=== PATIENT | female | born 1980 | race Native Hawaiian/Other Pacific Islander ===

== ENCOUNTER 2019-04-07 13:04 | Emergency (ER) | payer OTHER ==
[2019-04-07 13:23] VITALS: O2SAT 98
[2019-04-07 13:24] VITALS: PULSE 69; RESP 18; TEMP 98
[2019-04-07] MEDS ORDERED: Sodium Chloride 0.9% 1,000 ML IV STA (14:34)
[2019-04-07 15:25] LABS: BASO # 0.1 K/uL (0.0-0.2); BASO % 0.9 % (0.0-2.0); EOS # 0.3 K/uL (0.0-0.7); EOS % 5.2 % (0.0-4.0); HEMOGLOBIN 12.3 g/dL (12.0-16.0); LYMPH # 2.1 K/uL (1.0-4.3); LYMPH % 30.7 % (20.0-40.0); MEAN CELL VOLUME 79.9 fl (81.0-99.0); MEAN CORPUSCULAR HEMOGLOBIN 26.2 pg (27.0-31.0); MEAN CORPUSCULAR HGB CONC 32.8 g/dL (33.0-37.0); MEAN PLATELET VOLUME 8.4 fl (7.2-11.7); MONO # 0.4 K/uL (0.0-0.8); MONO % 5.8 % (0.0-10.0); NEUT # 3.8 K/uL (1.8-7.0); NEUT % 57.4 % (50.0-75.0); NRBC % 0.1 % (0.0-0.0); RBC 4.7 Mil/uL (3.80-5.20); RED CELL DISTRIBUTION WIDTH 14.2 % (11.5-14.5); WHITE BLOOD COUNT 6.7 K/uL (4.8-10.8)
[2019-04-07 15:42] LABS: SQUAMOUS EPITHIAL < 1 /hpf (0-5); URINE BACTERIA OCC (<OCC); URINE BILIRUBIN NEGATIVE (NEGATIVE); URINE BLOOD NEGATIVE (NEGATIVE); URINE CLARITY SLIGHTY-CLOUDY (Clear); URINE COLOR YELLOW (YELLOW); URINE GLUCOSE (UA) NEG (NEGATIVE); URINE LEUKOCYTE ESTERASE NEG Leu/uL (Negative); URINE PROTEIN 30 mg/dL (NEGATIVE); URINE UROBILINOGEN 0.2-1.0 mg/dL (0.2-1.0)
[2019-04-07 15:48] LABS: ALB/GLOB RATIO 1.4 (1.0-2.1); ALBUMIN 4.2 g/dL (3.5-5.0); ALT/SGPT 20 U/L (9-52); AST/SGOT 24 U/L (14-36); BLOOD UREA NITROGEN 12 mg/dl (7-17); CALCIUM 8.9 mg/dL (8.4-10.2); GFR NON-AFRICAN AMERICAN > 60
--- NOTE | 2019-04-07 16:53 | CT ---
Date of service: 04/07/2019 PROCEDURE: CT Abdomen and Pelvis without intravenous contrast HISTORY: flank pain, r/o kidney stone COMPARISON: None. TECHNIQUE: Helical CT of the abdomen and pelvis was performed without oral or intravenous contrast as per referring physician request. Coronal and sagittal reformats were generated. Radiation dose: Total exam DLP = 566.02 mGy-cm. This CT exam was performed using one or more of the following dose reduction techniques: Automated exposure control, adjustment of the mA and/or kV according to patient size, and/or use of iterative reconstruction technique. FINDINGS: LOWER THORAX: Unremarkable. LIVER: Unremarkable. No gross lesion or ductal dilatation. GALLBLADDER AND BILE DUCTS: Contracted. No radiodense cholelithiasis in the lumen. PANCREAS: Unremarkable. No gross lesion or ductal dilatation. SPLEEN: Unremarkable. ADRENALS: Unremarkable. No mass. KIDNEYS AND URETERS: Moderate left hydroureteronephrosis identified which appears to be due to a 4.8 mm calculus in the region of the distal left ureter proximal to the left ureterovesical junction region. Left ureter is difficult to separate at its distal segment from local adnexa and bowel. A midpole calculus is intrarenal, nonobstructive measuring 3.6 mm with a small calculi identified in the lower pole. No definite left perinephric reaction appreciable. 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 Clinically correlate with the former favored given lack of postoperative changes at the expected right renal fossa region. VASCULATURE: Unremarkable. No aortic aneurysm. No aortic atherosclerotic calcification or mural plaque present. BOWEL: Mildly prominent amount retained fecal material scattered throughout the right greater than left hemicolon. No bowel obstruction. No gross mural thickening. APPENDIX: Unremarkable. Normal appendix. PERITONEUM: Unremarkable. No free fluid. No free air. LYMPH NODES: Unremarkable. No enlarged lymph nodes. BLADDER: Unremarkable. REPRODUCTIVE: Unremarkable. BONES: No acute fracture. OTHER FINDINGS: None. IMPRESSION: 1. 4.8 mm calculus obstructs the distal left ureter proximal left ureter vessel junction causing moderate left hydroureteronephrosis. No perinephric reaction left kidney. Two intrarenal calculi identified at the mid and lower pole left kidney as per above (nonobstructive). 2. 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 Clinically correlate (former favored). 3. Mildly prominent amount retained fecal material scattered throughout the right greater than left hemicolon.
--- NOTE | 2019-04-07 17:36 | ED PDOC ---
HPI: Abdomen Time Seen by Provider: 04/07/19 14:13 Chief Complaint (Nursing): Abdominal Pain Chief Complaint (Provider): Left flank pain History Per: Patient History/Exam Limitations: no limitations Onset/Duration Of Symptoms: Days (2) Outside of [place] travel?: No Current Symptoms Are (Timing): Still Present Location Of Pain/Discomfort: Other Quality Of Discomfort: Sharp Associated Symptoms: Nausea, Vomiting, Other (LEft flank pain). denies: Fever, Chills, Loss Of Appetite, Constipation, Urinary Symptoms Exacerbating Factors: None Alleviating Factors: None Additional Complaint(s): 39 yo female with history of hypothyroid disorder presents for evaluation of left flank pain. PT was in [place] when the pain began. PT states that she was told it could be a kidney stone. [place] came [place]. PT has been taking pain medication with motrin and states that it has controlled her pain well. PT reports nausea and vomiting x 1 when the pain was bad. Pt denies fever/chills. Pt denies change in urination. Abnormal Vaginal Bleeding: No Past Medical History Reviewed: Historical Data, Nursing Documentation, Vital Signs Vital Signs: Last Vital Signs Temp 98 F 04/07/19 13:23 Pulse 69 04/07/19 13:23 Resp 18 04/07/19 13:23 BP 120/82 04/07/19 13:23 Pulse Ox 98 04/07/19 13:23 Primary Care Provider: FAMILY PROVIDER,NO - Medical History PMH: Hypothyroidism - Surgical History Surgical History: No Surg Hx - Family History Family History: States: No Known Family Hx - Living Arrangements Living Arrangements: With Family - Social History Current smoker - smoking cessation education provided: No - Home Medications Home Medications: Ambulatory Orders Medication Instructions Recorded Tamsulosin [Flomax] 0.4 mg PO DAILY #14 cap 04/07/19 oxyCODONE/Acetaminophen [Percocet 1 ea PO Q6H PRN #5 tab 04/07/19 5/325 mg Tab] - Allergies Allergies/Adverse Reactions: Allergies Allergy/AdvReac Type Severity Reaction Status Date / Time No Known Allergies Allergy Verified 04/07/19 13:21 Review of Systems ROS Statement: Except As Marked, All Systems Reviewed And Found Negative Constitutional: Negative for: Fever, Chills, Sweats Respiratory: Negative for: Cough, Shortness of Breath Gastrointestinal: Positive for: Nausea, Vomiting, Abdominal Pain Genitourinary Female: Negative for: Dysuria, Frequency, Incontinence, Hematuria, Pelvic Pain Physical Exam - Reviewed Nursing Documentation Reviewed: Yes Vital Signs Reviewed: Yes - Physical Exam Appears: Positive for: Well, Non-toxic, No Acute Distress Head Exam: Positive for: ATRAUMATIC, NORMAL INSPECTION, NORMOCEPHALIC Skin: Positive for: Normal Color, Warm, DRY Eye Exam: Positive for: Normal appearance ENT: Positive for: Normal ENT Inspection Neck: Positive for: Normal, Painless ROM Cardiovascular/Chest: Positive for: Regular Rate, Rhythm Respiratory: Positive for: Normal Breath Sounds. Negative for: Accessory Muscle Use, Respiratory Distress Gastrointestinal/Abdominal: Positive for: Normal Exam, Soft. Negative for: Tenderness, Guarding Back: Positive for: Normal Inspection. Negative for: L CVA Tenderness, R CVA Tenderness Extremity: Positive for: Normal ROM Neurological/Psych: Positive for: Awake, Alert, Normal Tone - Laboratory Results Result Diagrams: 04/07/19 15:04/07/19 15: Lab Results: Total Bilirubin 0.2 mg/dl (0.2-1.3) 04/07/19 15: AST 24 U/L (14-36) 04/07/19 15: ALT 20 U/L (9-52) 04/07/19 15: Alkaline Phosphatase 75 U/L (38-126) 04/07/19 15: Total Protein 7.2 G/DL (6.3-8.2) 04/07/19 15: Albumin 4.2 g/dL (3.5-5.0) 04/07/19 15: Globulin 3.1 gm/dL (2.2-3.9) 04/07/19 15: Albumin/Globulin Ratio 1.4 (1.0-2.1) 04/07/19 15: Urine Color Yellow (YELLOW) 04/07/19 15: Urine Clarity Slighty-cloudy (Clear) 04/07/19 15: Urine pH 7.0 (5.0-8.0) 04/07/19 15: Ur Specific [place] 1.021 (1.003-1.030) 04/07/19 15: Urine Protein 30 mg/dL (NEGATIVE) 04/07/19 15:19 Urine Glucose (UA) Neg mg/dL (NEGATIVE) 04/07/19 15:19 Urine Ketones Negative mg/dL (NEGATIVE) 04/07/19 15:19 Urine Blood Negative (NEGATIVE) 04/07/19 15:19 Urine Nitrate Negative (NEGATIVE) 04/07/19 15:19 Urine Bilirubin Negative (NEGATIVE) 04/07/19 15:19 Urine Urobilinogen 0.2-1.0 mg/dL (0.2-1.0) 04/07/19 15:19 Ur Leukocyte Esterase Neg [place]/uL (Negative) 04/07/19 15:19 Urine RBC (Auto) 3 /hpf (0-3) 04/07/19 15:19 Urine Microscopic WBC 1 /hpf (0-5) 04/07/19 15:19 Ur Squamous Epith Cells < 1 /hpf (0-5) 04/07/19 15:19 Urine Bacteria Occ (<OCC) H 04/07/19 15:19 Urine POC: Negative - ECG O2 Sat by Pulse Oximetry: 98 Medical Decision Making Medical Decision Making: Agenesis of the right kidney. 4.5 mm stone in the left ureter. Kidney function normal. Urine normal. Dr. Mcbride discussed with patient and Dr. Mitchell. PT to follow-up in office and send home on flomax Disposition - Clinical Impression Clinical Impression: Kidney stone on left side - Patient ED Disposition Is Patient to be Admitted: No Counseled Patient/Family Regarding: Diagnosis, Need For Followup, Rx Given - Disposition Referrals: Genaro Fox Jr., MD [Staff Provider] - Disposition: Routine/Home Disposition Time: 17:46 Condition: GOOD Prescriptions: oxyCODONE/Acetaminophen [Percocet 5/325 mg Tab] 1 ea PO Q6H PRN #5 tab PRN Reason: Pain, Severe (8-10) Tamsulosin [Flomax] 0.4 mg PO DAILY #14 cap Instructions: Kidney Stones in Adults Forms: [facility] ([place])
[2019-04-07 18:10] VITALS: BP 122/78
== END 2019-04-07 17:47 | disposition home or self-care (01) ==
LOC: H.ER 13:04
DX: N20.0 Calculus of kidney (principal); E03.9 Hypothyroidism, unspecified
CPT/HCPCS: 74176; 80053; 81003; 81025; 85025; 87086; 96360; 99284; J7030